=== PATIENT | female | born 1980 | race Two or more races ===

== ENCOUNTER 2025-09-05 16:07 | Outpatient (AMB) | payer BC, SELFPAY ==
--- NOTE | 2025-09-05 16:10 | AM.OFFWIN_ITS ---
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 Allergies acetaminophen (From Vicodin) Allergy (Severe, Verified 09/05/25 16:16) Vomiting hydrocodone (From Vicodin) Allergy (Severe, Verified 09/05/25 16:16) Vomiting hydromorphone (From Dilaudid) Allergy (Severe, Verified 09/05/25 16:16) Vomiting vortioxetine (From Trintellix) Allergy (Mild, Verified 09/05/25 16:16) Stuttering Medication List - Last Reconciled 09/06/25 by Gisell Ko MD bupropion HCl XL 300 mg PO QAM dextroamphetamine-amphetamine 10 mg 1 tab PO DAILY PRN dextroamphetamine-amphetamine 30 mg ER 1 cap PO QAM levocetirizine 5 mg PO QPM omeprazole 40 mg PO DAILY sucralfate 1 g PO QID tirzepatide (weight loss) (Zepbound) mg subcut QWEEK Do you need a note to return to daycare/school/sports/work: No HPI HPI Comments History of Present Illness Details History of Present Illness The patient is a 45 year old female presenting with vaginal odor, lower back pain, and dysuria for one week. - The patient reports a one-week history of vaginal odor without associated discharge. - Associated symptoms include lower back pain and occasional sharp pelvic cramping. - She reports her menstrual period start ed on Tuesday. - She reports a prior history of vaginal infections such as BV yeast infections - She reports symptoms appear similar to prior yeast infections. States that she took a 7 day course of Monistat which helped improve symptoms, however they have returned - The patient reports some discomfort wi th urination but denies burning, frequency, or urgency. - She has a history of hydrosalpinx and ovarian cysts and is unsure if this is c ontributing to her pain. - She has a history of kidney stones a l macey time ago. - Her current symptoms are not similar t o those she experienced with past kidney stones. - She denies any blood in the urine, namita sea, vomiting, fevers, or chills. Review of Systems Constitutional: Negative for fevers, chills Gastroenterology: Negative for nausea or vomiting Genitourinary: Reports dysuria, right sided flank pain, vaginal odor. Negative for urinary frequency, urinary urgency, hematuria, vaginal discharge, vaginal pain, abnormal vaginal bleeding Physical Exam Constituational: +Alert and oriented, Well nourished, No acute distress. Pulmonary: No respiratory distress Abdominal: Soft, Mild right sided CVA TTP. No Left CVA TTP. Minimal suprapubic TTP present. No guarding or rigidity present Musculoskeletal: Moving all extremities spontaneously and against gravity Psychiatric: Cooperative, Appropriate mood & affect, Normal judgment. Physical Exam Vital Signs: Last Vital Signs Temp 97.3 F 09/05/25 16:11 Pulse 78 09/05/25 16:11 BP 113/69 09/05/25 16:11 BMI result Body Mass Index 34.7 Results AMB Urinalysis, Automated UA Leukoctes 0 Anish/uL Last Edit by Walker Yusuf MA on 09/05/25 16:49 UA Nitrite Negative Last Edit by Walker Yusuf MA on 09/05/25 16:49 UA Urobilinogen 0.2 mg/dL Last Edit by Walker Yusuf MA on 09/05/25 16:49 UA Protein 0 mg/dL Last Edit by Walker Yusuf MA on 09/05/25 16:49 UA pH 6.0 Last Edit by Walker Yusuf MA on 09/05/25 16:49 UA Blood 200 Seven/uL Last Edit by Walker Yusuf MA on 09/05/25 16:49 3+ Walker Yusuf 09/05/25 16:49 UA Specific [place] 1.025 Last Edit by Walker Yusuf MA on 09/05/25 16:4 9 UA Ketone Positive Last Edit by Walker Yusuf MA on 09/05/25 16:49 15 mg/dl Walker Yusuf 09/05/25 16:49 UA Bilirubin 0 mg/dL Last Edit by Wakler Yusuf MA on 09/05/25 16:49 UA Glucose 0 mg/dL Last Edit by Walker Yusuf MA on 09/05/25 16:49 Results Reviewed Results Reviewed: Laboratory Last Values Urine pH (Auto) 6.0 09/05/25 16:31 Specific [place] (Auto) 1.025 09/05/25 16:31 Urine Protein (Auto) 0 mg/dL 09/05/25 16:31 Glucose (UA)(Auto) 0 mg/dL 09/05/25 16:31 Urine Ketones (Auto) Positive A* 09/05/25 16:31 Urine Blood (Auto) 200 Seven/uL H* 09/05/25 16:31 Urine Nitrite (Auto) Negative 09/05/25 16:31 Urine Bilirubin (Auto) 0 mg/dL 09/05/25 16:31 Urine Urobilinogen (Auto) 0.2 mg/dL 09/05/25 16:31 Leukocyte Esterase (Auto) 0 Anish/uL 09/05/25 16:31 Assessment & Plan Assessment & Plan (1) Dysuria: Code(s): R30.0 - Dysuria Plan Patient presents with a 7 day history of dysuria, vaginal odor, and lower back pain. She denies any fevers, nausea, or vomiting She has a history of hydrosalpinx and recurrent ovarian cysts which she is u nsure they may be related to her current symptoms She is currently on her menstrual period which may also be contributing to her symptoms Patient reports symptoms do not appear similar with prior history of kidney stones UA in office reveals 3+ blood and 1+ ketones, however negative leukocytes or nitrites. Based on symptoms, will obtain urine cultures to definitely rule out UTI BV, yeast, Trichomonas, gonorrhea, and chlamydia swabs obtained in office In the interim, recommended to stay well hydrated and urinate frequently. Advised to avoid any products such as scented soaps in the vaginal area. Recommended monitoring for increasing flank pain, fevers, nausea, vomiting, or worsening symptoms. Recommended prompt medical evaluation if these symptoms occur. Patient was informed and verbally consented to the use of an ambient scribe for clinic note documentation during the visit. Orders: Orders Urine Culture 09/05/25 Z13.9 - Encounter for screening, unspecified AMB Urinalysis Automated 09/05/25 R30.0 - Dysuria Bacterial Vaginosis Panel 09/05/25 R30.0 - Dysuria CT NG by PCR Vag/Cerv 09/05/25 R30.0 - Dysuria Coding Level of Care Code New Pt Level 3 (74749) Diagnoses Dysuria R30.0
[2025-09-05 16:11] VITALS: BP 113/69; PULSE 78; TEMP 36.3; BMI 34.7
--- OUTSIDE RECORDS SUMMARY | 2025-09-05 23:15 | XMS_ITS | Clinical Summary ---
Author Organization Patient Business [facility] Address [address] [place] [address] Care Team Providers Care Sales Account Coordinator Name Role Phone Alan Reyes MD Primary Care Provider [phone] Surgical History Surgery Date Site/Laterality Comments OTHER SURGICAL HISTORY age 4 PROCEDURE: SKIN GRAFT <100SQCM; COMMENT: left tympanoplasty CHOLECYSTECTOMY 2002 PROCEDURE: HISTORICAL CHOLECYSTECTOMY; COMMENT: Dr. Rivera SECTION 2002 PROCEDURE: HISTORICAL ; COMMENT: 2010; total x 2 OTHER SURGICAL HISTORY 05/31/07 PROCEDURE: [place] UNLISTED PX ABDOMEN MUSCULOSKELETAL SYSTEM; COMMENT: Abdominoplasty GASTRIC BYPASS 01/2006 PROCEDURE: [place] GASTRIC RSTCV W/BYP W/SM INT RCNSTJ LIMIT ABSRPJ; COMMENT: Dr. Santacruz; Justin-en-Y ESOPHAGOGASTRODUODENOSCOPY 03/23/2017 PROCEDURE: [place] ESOPHAGOGASTRODUODENOSCOPY TRANSORAL DIAGNOSTIC; COMMENT: normal post gastric bypass Medical History Medical History Date Comments Benign neoplasm of pituitary gland and craniopharyngeal duct (pouch) (CMS/HCC V24, CMS/HCC V28) DX:Benign neoplasm of pitui tary gland and craniopharyngeal duct (pouch) ([facility]); COMMENT: small prolactinoma '99 Allergic rhinitis, cause unspecified DX:Allergic rhinitis, cause unspecified Acute bronchospasm 09/05/2006 DX:Acute bron chospasm Morbid obesity (CMS/HCC V24, CMS/HCC V28) 01/03/2006 DX:Morbid obesity (HCC); COM MENT: gastric bypass; January 2006 Dr. Santacruz Family History Medical History Relation Name Comments Heart failure Brother asthma, HTN Asthma Daughter Heart attack Maternal Grandfather Hypertension Maternal Grandmother COPD (s moker); ?lung cancer COPD Mother +smoker; HTN, S OTILIO cause of Other: unknown cancer Paternal Grandfather Asthma Son Colon cancer Uncle maternal prostate/bladde r cancer Relation Name Status Comments Brother Alive obese, sleep ap dajuan, CHF at age 21, he's preop Gastric Bypass Daughter Alive healthy Father unknown Alive Maternal Grandfather (Age late 6 0s) AMI; obese Maternal Grandmother HTN, CV As Mother smoker ? COPD, sleep apnea, no colon or breast CA Paternal Grandfather Alive Son Alive healthy Uncle maternal Social History Tobacco Use Types Packs/Day Years Used Date Smoking Tobacco: Never Smokeless Tobacco: Never Alcohol Use Standard Drinks/Week Comments Yes 0 (1 standard drink = 0.6 oz pur e alcohol) Comments Unknown Sex and Gender Information Value Date Recorded Sex Assigned at Not on file Legal Sex Female 7:37 PM EST Gender Identity Not on file Sexual Orientation Not on file Plan of Treatment Health Maintenance Due Date Last Done Comments Breast Cancer Screening 1979 Cervical Cancer Screening: Pap Smear 2000 Depression Screening 09/26/2024 COVID-19 Vaccine ( season) 2025 01/15/2021, 12/25/2020 Influenza Vaccine (#1) 2025 06/15/2011 DTaP,Tdap,and Td Vaccines (4 - Td or Tdap) 12/04/2028 12/04/2018, 10/23/2008, 01/02/1998 RSV Immunization Adult Patients (1 - 1-dose 75+ series) 2054 MMR Vaccines Aged Out 08/10/2004 No longer eligi ble based on patient's age to complete this topic Meningococcal ACWY Vaccine Aged Out 10/23/2008 N o longer eligible based on patient's age to complete this topic Hepatitis B Vaccines Completed 07/16/2009, 12/11/2008, 11/13/2008, Additional history exists HIB Vaccines Aged Out No longer eligi ble based on patient's age to complete this topic HPV Vaccines Aged Out No longer eligi ble based on patient's age to complete this topic Hepatitis A Vaccines Aged Out No long er eligible based on patient's age to complete this topic IPV Vaccines Aged Out No longer eligi ble based on patient's age to complete this topic Meningococcal B Vaccine Aged Out No l onger eligible based on patient's age to complete this topic Pneumococcal Vaccine: Pediatrics (0 to 5 Years) and At-Risk Patients (6 to 49 Years) Aged Out No longer eligible based on patient's age to complete this topic RSV Immunization Patients Under 20 months Aged Out No longer eligible based on patient's age to complete this topic Varicella Vaccines Aged Out No longer eligible based on patient's age to complete this topic Care Teams Sales Account Coordinator Relationship Specialty Start Date End Date Alan Reyes MD PCP - General 08/03/01
--- OUTSIDE RECORDS SUMMARY | 2025-09-05 23:15 | XMS_ITS | Continuity of Care Document ---
Author Organization [facility] [address] [place] [address] Phone [phone] Problems Active Problems Provider Date Prolactinoma Maurice Rebolledo M.D. Onset: 0 10/26/2022 Headache Maurice Rebolledo M.D. Onset: 0 10/26/2022 Osteoporosis Maurice Rebolledo M.D. Onset: 0 10/26/2022 Tinnitus Maurice Rebolledo M.D. Onset: 0 10/26/2022 Social History Type Date Description Comments Sex Female Sex Unknown Lives With Spouse Lives With Daughter Lives With Son ETOH Use Occasionally consumes alcoho l Tobacco Use Start: Unknown Patient has never smoked Medications Active Medications SIG Qnty Indications Order ing Provider Date Isibloom0.15-30mg-mcg Tablets Take 1 Tablet By Mouth Every Day Jaye Coyle M.D. Bupropion Hydrochloride ER (XL)300mg Tablets ER 24HR Take 1 tablet daily Unknown Binaxnow Covid-19 Ag Card Home TestKit Follow Package Directions Unknown [id number] Tablets Take 1 Tablet By Mouth Daily For 1 Day Unknown Valacyclovir EQC940io Tablets prn Jaye Coyle M.D. Adderall XR20mg Caps ER 24HR Take 1 Capsule By Mouth Twice Daily Unknown Folic Vlur3xh Tablets Take 1 Tablet By Mouth Every Day Unknown [id number] Capsules DR 1 by mouth every day Maurice Rebolledo M.D. Vital Signs Date Vital Result Comment 10/26/2022 2:56pm BP Systolic 110 mmHg BP Diastolic 72 mmHg Heart Rate 76 /min Height 64 inches 5'4 Weight 218.00 lb BMI (Body Mass Index) 37.4 kg/m2 Results Test Acquired Date Facility Test Result H/L Range N ote Prolactin 10/20/2022 [facility] Prolactin 17.8 NG/ML (4.8-23.3) TSH 10/20/2022 [facility] TSH 1.47 uIU/mL (0.4-4.2) Free T4 10/20/2022 [facility] Free T4 1.01 ng/dL (0.70-1.80) Medical Devices Description No Information Available Encounters Type Date Location Provider Dx Diagnosis Office Visit 10/26/2022 3:00p Main Office Maurice Rebolledo M.D. D35.2 Benign neoplasm of pituitary gland Assessments Date Code Description Provider 10/26/2022 D35.2 Benign neoplasm of pituitary gland Maurice Rebolledo M.D. Plan of Treatment No Information Available Functional Status Description No Information Available Mental Status Description No Information Available Referrals Description No Information Available
== END 2025-09-06 07:22 | disposition home or self-care (01) ==
PROVIDERS: Visit Provider Family Medicine
DX: R30.0 Dysuria (principal)

== ENCOUNTER 2025-09-05 16:07 | Outpatient (REF) | payer SELFPAY ==
[2025-09-06 04:44] LABS: Bacterial Vaginosis PCR NEGATIVE (Negative); Candida Group PCR NOT DETECTED (Not Detect); Candida glab krusei PCR NOT DETECTED (Not Detect); Trichomonas vaginalis PCR NOT DETECTED (Not Detect)
[2025-09-06 05:19] LABS: CT PCR NOT DETECTED (Not Detect.); NG PCR NOT DETECTED (Not Detect.)
== END 2025-09-05 16:08 | disposition home or self-care (01) ==
LOC: HO.LAB 16:07
PROVIDERS: Visit Provider Family Medicine
DX: R30.0 Dysuria (principal); Z20.2 Contact with and (suspected) exposure to infections with a predominantly sexual mode of transmission
CPT/HCPCS: 81003; 81515; 87086; 87491; 87591

== ENCOUNTER 2025-09-11 12:30 | Outpatient (REF) | payer BC, SELFPAY ==
--- OUTSIDE RECORDS SUMMARY | 2025-09-11 17:20 | XMS_ITS | Encounter Summary ---
Author Organization [facility] Prior to 07/27/[address] [place] [id number] Care Team Providers Care Foreign Language Instructor Name Role Phone Alan Reyes MD Primary Care Provider [phone] Reason for Referral * EXTERNAL (Priority) - JORDON Not Received/Patient Declined Specialty Diagnoses / Procedures Referred By Contact Referred To Contact Otolaryngology / EarNoseThroat Procedures REFERRAL TO EAR, NOSE & THROAT Kisha Jessica MD [address] [place], [place] [phone] [facility] [address] [place] [address] DR. HONG [address] [place] [id number] Referral ID Status Reason Start Date Expiration Date V isits Requested Visits Authorized SEE NOTE JORDON Not Received/Lorrie ent Declined 07/05/2017 10/06/2017 1 1 Encounter Details Date Type Department Care Team Description 07/05/2017 Orders Only Adult Medicine [address] [address] Kisha Jessica MD Social History Tobacco Use Types Packs/Day Years Used Date Smoking Tobacco: Never Smokeless Tobacco: Never Alcohol Use Standard Drinks/Week Comments No 0 (1 standard drink = 0.6 oz pur e alcohol) Sex Assigned at Date Recorded Female 02/26/2021 9:29 AM E DT documented as of this encounter Plan of Treatment Not on file documented as of this encounter Visit Diagnoses Not on filedocumented in this encounter Care Teams Foreign Language Instructor Relationship Specialty Start Date End Date Alan Reyes MD [address] [place] [phone] PCP - General 08/03/01 documented as of this encounter
--- OUTSIDE RECORDS SUMMARY | 2025-09-11 17:20 | XMS_ITS | Encounter Summary ---
Author Organization [facility] Prior to 07/27/2024 Address [address] [place] [address] Care Team Providers Care Hammer Runner Name Role Phone Alan Reyes MD Primary Care Provider [phone] Reason for Referral * Non JENN (Priority) - Authorized/Booked Specialty Diagnoses / Procedures Referred By Km arnold Referred To Contact Gastroenterology Procedures REFERRAL TO GASTROENTEROLOGY Kisha Jessica MD [address] [place] [address] [facility] [address] [place] [id number] Referral ID Status Reason Start Date Expiration Date V isits Requested Visits Authorized [id number] Authorized/ Booked 01/26/2017 01/26/2018 1 1 Encounter Details Date Type Department Care Team Description 01/26/2017 Orders Only Adult Medicine [address] [address] Kisha Jessica MD Gastroesophageal reflux disease without esophagitis (Primary Dx) Social History Tobacco Use Types Packs/Day Years Used Date Smoking Tobacco: Never Smokeless Tobacco: Never Alcohol Use Standard Drinks/Week Comments Yes 0 (1 standard drink = 0.6 oz pur e alcohol) social Sex Assigned at Date Recorded Female 02/26/2021 9:29 AM E DT documented as of this encounter Plan of Treatment Not on file documented as of this encounter Visit Diagnoses Diagnosis Gastroesophageal reflux disease without esophagitis- Primary Esophageal reflux documented in this encounter Care Teams Hammer Runner Relationship Specialty Start Date End Date Alan Reyes MD [address] [place] [id number] PCP - General 08/03/01 documented as of this encounter
--- OUTSIDE RECORDS SUMMARY | 2025-09-11 17:20 | XMS_ITS | Encounter Summary ---
Author Organization [facility] Prior to 07/27/2024 Address [address] [place] [address] Care Team Providers Care Butcher Supervisor Name Role Phone Alan Reyes MD Primary Care Provider [phone] Encounter Details Date Type Department Care Team Description 10/12/2016 Pt. Non Urgent Medical Question Adult Medicine [address] [id number] Alan Reyes MD [address] [place] [address] [phone] Social History Tobacco Use Types Packs/Day Years Used Date Smoking Tobacco: Never Smokeless Tobacco: Never Alcohol Use Standard Drinks/Week Comments Yes 0 (1 standard drink = 0.6 oz pur e alcohol) social Sex Assigned at Date Recorded Female 02/26/2021 9:29 AM E DT documented as of this encounter Progress Notes * Chelsey Alvarado M.A. - 10/12/2016 1:08 PM ESTFrom: Felisa Mcclure To: Alan Reyes MD Sent: 10/12/2016 12:14 PM EST Subject: Vaccine ..I am traveling to [facility] with my family in december..I was advised by the travel clinic to get a Hep A series. I was wondering if you could order that so I would not have to go to the travel clinic. Thank you documented in this encounter Plan of Treatment Not on file documented as of this encounter Visit Diagnoses Not on filedocumented in this encounter Care Teams Butcher Supervisor Relationship Specialty Start Date End Date Alan Reyes MD [address] [place] [phone] PCP - General 08/03/01 documented as of this encounter
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
--- OUTSIDE RECORDS SUMMARY | 2025-09-11 17:20 | XMS_ITS | Encounter Summary ---
Author Organization [facility] Prior to 07/27/2024 Address [address] [place] [address] Care Team Providers Care Padding Machine Operator Name Role Phone Alan Reyes MD Primary Care Provider [phone] Reason for Visit * Reason Onset Date Comments Provider Call Back 02/03/2018 Encounter Details Date Type Department Care Team Description 02/03/2018 Telephone Gastroenterology - [address] [id number] Miguel Pruett PA-C Provider Call Back Social History Tobacco Use Types Packs/Day Years Used Date Smoking Tobacco: Never Smokeless Tobacco: Never Alcohol Use Standard Drinks/Week Comments Yes 0 (1 standard drink = 0.6 oz pur e alcohol) 1 drink per week Sex Assigned at Date Recorded Female 02/26/2021 9:29 AM E DT documented as of this encounter Miscellaneous Notes * Telephone Encounter - Miguel Pruett PA-C - 02/06/2018 4:58 PM EDT lola Alonzo. * Telephone Encounter - Natali Gr - 02/06/2018 1:39 PM EDT Patient appointment is scheduled for 02/18/18 for Nuc Med Hida Scan, she could only take this appointment due to her work schedule, patient scheduled for 02/22/18 @ 10:00am will check with her Facility Administrator if okay. * Telephone Encounter - Ivet Domingo - 02/06/2018 1:32 PM EDT Message left for patient to call back. If she does, ask patient to call radiology to get gastric emptying Study done sooner. Also, needs follow up with Miguel Pruett. * Telephone Encounter - Miguel Pruett PA-C - 02/06/2018 1:26 PM EDT Please ask the patient to contact the radiology department to see if she can have her gastric emptying study completed sooner and then have her follow-up with me here in the office to discuss the results. * Telephone Encounter - Coleen Huang - 02/06/2018 11:32 AM EDT Patient called back, she has her gastric emptying study scheduled for 02/18/18, she will call back to book the follow up. Patient also says that she is not eating, she just takes protein shakes but even that hurts. * Telephone Encounter - Ivet Domingo - 02/06/2018 11:28 AM EDT First message left for patient to call the office. * Telephone Encounter - Miguel Pruett PA-C - 02/06/2018 10:31 AM EDT Patient was seen in the office 3 months ago with chronic digestive complaints of postprandial abdominal bloating, early satiety, nausea and heartburn/reflux symptoms. Upper endoscopy completed last February was normal. Patient is status post gastric bypass surgery in 2005. Symptoms were felt to be mostconsistent with gastroparesis. Patient should have her previously requested gastric emptying study completed and schedule a follow-up visit with me here in the office to discuss the results and her ongoing symptoms. * Telephone Encounter - Ivet Domingo - 02/03/2018 11:11 AM EDT Patient is having a gastric emptying on 02/18/18. Patient has been having protein shakes. Patient still having a lot of pain. Patient not sure if she should still go ahead with the Gastric emptying. Patient is aware miguel not in the office until Tuesday. Requesting a call back then. documented in this encounter Plan of Treatment Not on file documented as of this encounter Visit Diagnoses Not on filedocumented in this encounter Care Teams Padding Machine Operator Relationship Specialty Start Date End Date Alan Reyes MD [address] [place] [id number] PCP - General 08/03/01 documented as of this encounter
--- OUTSIDE RECORDS SUMMARY | 2025-09-11 17:20 | XMS_ITS | Encounter Summary ---
Author Organization [facility] Prior to 07/27/2024 Address [address] [place] [address] Care Team Providers Care Alberene Stone Setter Name Role Phone Alan Reyes MD Primary Care Provider [phone] Encounter Details Date Type Department Care Team Description 08/16/2012 Release of Information Medical Records [address] [place] [address] Abstract, Provider Social History Tobacco Use Types Packs/Day Years [...] on filedocumented in this encounter Care Teams Alberene Stone Setter Relationship Specialty Start Date End Date Alan Reyes MD [address] [place] [id number] PCP - General 08/03/01 documented as of this encounter
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
--- OUTSIDE RECORDS SUMMARY | 2025-09-11 17:20 | XMS_ITS | Encounter Summary ---
Author Organization [facility] Prior to 07/27/2024 Address [address] [place] [address] Care Team Providers Care Clinical Research Associate Name Role Phone Alan Reyes MD Primary Care Provider [phone] Encounter Details Date Type Department Care Team Description 04/17/2019 Bar Porter Report Medical Records [address] [place] [address] Social History Tobacco Use Types Packs/Day Years [...] on filedocumented in this encounter Care Teams Clinical Research Associate Relationship Specialty Start Date End Date Alan Reyes MD [address] [place], [place] [phone] PCP - General 08/03/01 documented as of this encounter
--- OUTSIDE RECORDS SUMMARY | 2025-09-11 17:20 | XMS_ITS | Encounter Summary ---
Author Organization [facility] Prior to 07/27/2024 Address [address] [place] [address] Care Team Providers Care High Density Finishing Operator Name Role Phone Alan Reyes MD Primary Care Provider [phone] Encounter Details Date Type Department Care Team Description 11/14/2017 Block Sorter Report Medical Records [address] [place] [address] Melissa Lynne PA-C Social History Tobacco Use Types Packs/Day Years [...] on filedocumented in this encounter Care Teams High Density Finishing Operator Relationship Specialty Start Date End Date Alan Reyes MD [address] [place] [address] PCP - General 08/03/01 documented as of this encounter
--- OUTSIDE RECORDS SUMMARY | 2025-09-11 17:20 | XMS_ITS | Encounter Summary ---
Author Organization [facility] Prior to 07/27/2024 Address [address] [place] [address] Care Team Providers Care Slot Operations Director Name Role Phone Alan Reyes MD Primary Care Provider [phone] Reason for Visit * Reason Onset Date Comments My Chart Appointment 11/15/2019 Abdominal d istention Encounter Details Date Type Department Care Team Description 11/15/2019 Telephone Adult Medicine [address] [address] Mynor Lyons, ANMOL My Chart Appointment (Abdominal distention) Social History Tobacco Use Types Packs/Day Years Used Date Smoking Tobacco: Never Smokeless Tobacco: Never Alcohol Use Standard Drinks/Week Comments Yes 0 (1 standard drink = 0.6 oz pur e alcohol) Sex Assigned at Date Recorded Female 02/26/2021 9:29 AM E DT documented as of this encounter Miscellaneous Notes * Telephone Encounter - Brisa Ramires R.N - 11/15/2019 4:55 PM EST [phone] (home) [phone] (work) Pt called left voice message to return call. * Telephone Encounter - Radha Robbins - 11/15/2019 1:20 PM EST Patient has scheduled a visit through My Chart. Please call patient to triage for appropriateness. Date appointment is booked: 11/16/19 Appointment scheduled with Mynor Lyons Reason for appointment: Abdominal distention documented in this encounter Plan of Treatment Not on file documented as of this encounter Visit Diagnoses Not on filedocumented in this encounter Care Teams Slot Operations Director Relationship Specialty Start Date End Date Alan Reyes MD [address] [place] [id number] PCP - General 08/03/01 documented as of this encounter
--- OUTSIDE RECORDS SUMMARY | 2025-09-11 17:20 | XMS_ITS | Encounter Summary ---
Author Organization [facility] Prior to 07/27/2024 Address [address] [place] [address] Care Team Providers Care Semiconductor Testing Group Leader Name Role Phone Alan Reyes MD Primary Care Provider [phone] Encounter Details Date Type Department Care Team Description 05/29/2019 Insurance Inspector Report Medical Records [address] [place] [address] Social History Tobacco Use Types Packs/Day Years [...] on filedocumented in this encounter Care Teams Semiconductor Testing Group Leader Relationship Specialty Start Date End Date Alan Reyes MD [address] [place], [place] [phone] PCP - General 08/03/01 documented as of this encounter
--- OUTSIDE RECORDS SUMMARY | 2025-09-11 17:20 | XMS_ITS | Encounter Summary ---
Author Organization [facility] Prior to 07/27/2024 Address [address] [place] [address] Care Team Providers Care Textile Converter Name Role Phone Alan Reyes MD Primary Care Provider [phone] Reason for Visit * Reason Comments E-prescribe Rx Request Encounter Details Date Type Department Care Team Description 01/26/2013 Refill Adult Medicine [address] [phone] Alan Reyes MD [address] [place] [address] [phone] E-prescribe Rx Request Social History Tobacco Use Types Packs/Day Years Used Date Smoking Tobacco: Never Smokeless Tobacco: Never Alcohol Use Standard Drinks/Week Comments Yes 0 (1 standard drink = 0.6 oz pur e alcohol) social Sex Assigned at Date Recorded Female 02/26/2021 9:29 AM E DT documented as of this encounter Miscellaneous Notes * Telephone Encounter - Ashlee Rosario L.P.N. - 01/26/2013 9:23 AM EDT Pt will need an appt * Telephone Encounter - Alivia Pelletier - 01/26/2013 9:20 AM EDT WHEN WAS THE PATIENT'S LAST APPOINTMENT IN ADULT MEDICINE? 07/27/12 WHEN WAS THE LAST TIME THE PATIENT SAW THEIR PCP? 12/04/11 Does patient have an upcoming appointment? No[facility] to refill request. Appt due in January (THE MEDICATION REQUESTED IS ON THE MED LIST ABOVE) All of the medications requested were on the CURRENT MEDS list Did you check the Pharmacy information above?: YES Patient wants: 30 -day supply Patient would like script to be: E-PRESCRIBED/FAXED TO PHARMACY Is this a mail order prescription request ? NO Indicate how soon the patient needs the script: BY THE END OF THE DAY Patients current insurance carrier is: Payor: Vocab [facility] XOR.MOTORS Plan: [employer] $[address] [place] [id number] Product Type: [employer] [id number] documented in this encounter Plan of Treatment Not on file documented as of this encounter Visit Diagnoses Not on filedocumented in this encounter Care Teams Textile Converter Relationship Specialty Start Date End Date Alan Reyes MD [address] [place] [address] PCP - General 08/03/01 documented as of this encounter
--- OUTSIDE RECORDS SUMMARY | 2025-09-11 17:20 | XMS_ITS | Encounter Summary ---
Author Organization [facility] Prior to 07/27/2024 Address [address] [place] [address] Care Team Providers Care Linux Network Engineer Name Role Phone Alan Reyes MD Primary Care Provider [phone] Encounter Details Date Type Department Care Team Description 01/15/2019 Um Rn Report Medical Records [address] [place] [address] Social History Tobacco Use Types Packs/Day Years [...] on filedocumented in this encounter Care Teams Linux Network Engineer Relationship Specialty Start Date End Date Alan Reyes MD [address] [place], [place] [phone] PCP - General 08/03/01 documented as of this encounter
--- OUTSIDE RECORDS SUMMARY | 2025-09-11 17:20 | XMS_ITS | Encounter Summary ---
Author Organization [facility] Prior to 07/27/2024 Address [address] [place] [address] Care Team Providers Care Support Dba Name Role Phone Alan Reyes MD Primary Care Provider [phone] Reason for Visit * Reason Comments E-prescribe Rx Request Encounter Details Date Type Department Care Team Description 04/16/2017 Refill Gastroenterology - [address] [phone] Win Whelan PA-C E-prescribe Rx Request Social History Tobacco Use Types Packs/Day Years Used Date Smoking Tobacco: Never Smokeless Tobacco: Never Alcohol Use Standard Drinks/Week Comments Yes 0 (1 standard drink = 0.6 oz pur e alcohol) social Sex Assigned at Date Recorded Female 02/26/2021 9:29 AM E DT documented as of this encounter Miscellaneous Notes * Telephone Encounter - Ivet Domingo - 04/18/2017 11:25 AM EDT Message left for patient to call the office. * Telephone Encounter - Win Whelan PA-C - 04/18/2017 9:08 AM EDT Will approve but pt needs a f/u appt. documented in this encounter Plan of Treatment Not on file documented as of this encounter Visit Diagnoses Not on filedocumented in this encounter Care Teams Support Dba Relationship Specialty Start Date End Date Alan Reyes MD [address] [place] [id number] PCP - General 08/03/01 documented as of this encounter
--- OUTSIDE RECORDS SUMMARY | 2025-09-11 17:20 | XMS_ITS | Encounter Summary ---
Author Organization [facility] Prior to 07/27/2024 Address [address] [place] [address] Care Team Providers Care Chemical Equipment Repairer Name Role Phone Alan Reyes MD Primary Care Provider [phone] Reason for Visit * Reason Onset Date Comments E-prescribe Rx Request 10/20/2008 Encounter Details Date Type Department Care Team Description 10/19/2008 Refill Adult Medicine [address] [address] Gladis Vaca MD E-prescribe Rx Request Social History Tobacco Use Types Packs/Day Years Used Date Smoking Tobacco: Never Alcohol Use Standard Drinks/Week Comments Yes 0 (1 standard drink = 0.6 oz pur e alcohol) social Sex Assigned at Date Recorded Female 02/26/2021 9:29 AM E DT documented as of this encounter Miscellaneous Notes * Telephone Encounter - Gladis Vaca MD - 10/22/2008 8:13 AM EST Looks like refill request was already send to Dr Estrada which is approproiate * Telephone Encounter - Roque Jama - 10/21/2008 8:47 AM EST SHOULD THIS MED COME FROM FOAM FABRICATOR OR ENDOCRINOLOGY ?? * Telephone Encounter - Nathaniel Whalen MD - 10/21/2008 8:41 AM EST I don't feel comfortable refilling this * Telephone Encounter - Pam Arzate Lpn - 10/21/2008 7:58 AM EST Please review and advise. last filled 09/09/08 Gladis Elmore MD # [id number] * Telephone Encounter - Pam Arzate Lpn - 10/20/2008 4:51 PM EST SHOULD THIS MED COME FROM FOAM FABRICATOR OR ENDOCRINOLOGY ?? documented in this encounter Plan of Treatment Not on file documented as of this encounter Visit Diagnoses Not on filedocumented in this encounter Care Teams Chemical Equipment Repairer Relationship Specialty Start Date End Date Alan Reyes MD [address] [place] [id number] PCP - General 08/03/01 documented as of this encounter
--- OUTSIDE RECORDS SUMMARY | 2025-09-11 17:20 | XMS_ITS | Encounter Summary ---
Author Organization [facility] Prior to 07/27/2024 Address [address] [place] [address] Care Team Providers Care Frontend Engineer Name Role Phone Alan Reyes MD Primary Care Provider [phone] Encounter Details Date Type Department Care Team Description 07/31/2012 Parachute Rigger Report Medical Records [address] [place] [address] Social History Tobacco Use Types Packs/Day Years [...] on filedocumented in this encounter Care Teams Frontend Engineer Relationship Specialty Start Date End Date Alan Reyes MD [address] [place], [place] [phone] PCP - General 08/03/01 documented as of this encounter
--- OUTSIDE RECORDS SUMMARY | 2025-09-11 17:20 | XMS_ITS | Continuity of Care Document ---
Author Organization [facility] [address] [place] [address] Phone [phone] Problems Active Problems Provider Date Prolactinoma Maurice [...] Card Home TestKit Follow Package Directions Unknown [id number] Tablets Take 1 Tablet By Mouth Daily For 1 Day Unknown Valacyclovir [id number] Tablets prn Jaye Coyle M.D. Adderall XR20mg Caps ER 24HR Take 1 Capsule By Mouth Twice Daily Unknown Folic Wabl5ok Tablets Take 1 Tablet By Mouth Every Day Unknown [id number] Capsules DR 1 by mouth every day Maurice Rebolledo M.D. Vital Signs Date Vital Result Comment 10/26/2022 2:56pm BP Systolic 110 mmHg BP Diastolic 72 mmHg Heart Rate 76 /min Height 64 inches 5'4 Weight 218.00 lb BMI (Body Mass Index) 37.4 kg/m2 Results Test Acquired Date Facility Test Result H/L Range N ote Prolactin 10/20/2022 [facility] Refer ce Lab Prolactin 17.8 NG/ML (4.8-23.3) TSH 10/20/2022 [facility] ce Lab TSH 1.47 uIU/mL (0.4-4.2) Free T4 10/20/2022 [facility] ce Lab Free T4 1.01 ng/dL (0.70-1.80) [...]
--- OUTSIDE RECORDS SUMMARY | 2025-09-11 17:20 | XMS_ITS | Encounter Summary ---
Author Organization [facility] Prior to 07/27/2024 Address [address] [place] [address] Care Team Providers Care Hogshead Stripper Name Role Phone Alan Reyes MD Primary Care Provider Reason for Visit * Reason Onset Date Comments Faxed Refill 07/04/2017 Encounter Details Date Type Department Care Team Description 07/04/2017 Refill Adult Medicine [address] [id number] Alan Reyes MD [address] [place] [address] Faxed Refill Social History Tobacco Use Types Packs/Day Years Used Date Smoking Tobacco: Never Smokeless Tobacco: Never Alcohol Use Standard Drinks/Week Comments No 0 (1 standard drink = 0.6 oz pur e alcohol) Sex Assigned at Date Recorded Female 02/26/2021 9:29 AM E DT documented as of this encounter Miscellaneous Notes * Telephone Encounter - Roz Del Cid - 07/04/2017 1:23 PM EDT Patient would like script to be: E-PRESCRIBED/FAXED TO PHARMACY When was the patients last office visit in Adult Medicine?: 04/22/17 When was the last time the patient saw their PCP? 12/04/11 Does patient have an upcoming appointment? Yes 07/26/17 (THE MEDICATION IS NOT ON THE MED LIST AND IS IDENTIFIED BELOW): Med name: amoxicillin Dosage: 500 # of tablets: 21 Local pharmacy with request for 30 -day supply Instructions: 1 cap by mouth 3 times a day for 7 days Did you check the pharmacy information above?: YES Patients current insurance carrier: Payor: [employer] / Plan: [employer] EMP PPO $20/$30 / Product Type: PPO [id number] documented in this encounter Plan of Treatment Not on file documented as of this encounter Visit Diagnoses Not on filedocumented in this encounter Care Teams Hogshead Stripper Relationship Specialty Start Date End Date Alan Reyes MD [address] [place] [id number] PCP - General 08/03/01 documented as of this encounter
--- OUTSIDE RECORDS SUMMARY | 2025-09-11 17:20 | XMS_ITS | Encounter Summary ---
Author Organization [facility] Prior to 07/27/2024 Address [address] [place] [address] Care Team Providers Care Manager Of Digital Name Role Phone Alan Reyes MD Primary Care Provider [phone] Encounter Details Date Type Department Care Team Description 02/13/2019 Fireworks Inspector Report Medical Records [address] [place] [address] Social History Tobacco Use Types Packs/Day Years [...] on filedocumented in this encounter Care Teams Manager Of Digital Relationship Specialty Start Date End Date Alan Reyes MD [address] [place], [place] [phone] PCP - General 08/03/01 documented as of this encounter
--- OUTSIDE RECORDS SUMMARY | 2025-09-11 17:20 | XMS_ITS | Encounter Summary ---
Author Organization [facility] Prior to 07/27/2024 Address [address] [place] [address] Care Team Providers Care Die Finisher Forging Name Role Phone Alan Reyes MD Primary Care Provider [phone] Encounter Details Date Type Department Care Team Description 05/06/2014 Release of Information Medical Records [address] [place] [id number] Abstract, Provider Social History Tobacco Use Types [...] on filedocumented in this encounter Care Teams Die Finisher Forging Relationship Specialty Start Date End Date Alan Reyes MD [address] [place] [address] [phone] PCP - General 08/03/01 documented as of this encounter
--- OUTSIDE RECORDS SUMMARY | 2025-09-11 17:20 | XMS_ITS | Encounter Summary ---
Author Organization [facility] Prior to 07/27/2024 Address [address] [place] [address] Care Team Providers Care Project Program Manager Name Role Phone Alan Reyes MD Primary Care Provider [phone] Reason for Referral * EXTERNAL (Routine) - Authorized/Booked Specialty Diagnoses / Procedures Referred By Km arnold Referred To Contact Endocrinology Procedures REFERRAL TO ENDOCRINOLOGY Karlee Horner PA-C [address] [place] [address] Chidi Cruz MD [facility] [address] [place] [address] Referral ID Status Reason Start Date Expiration Date V isits Requested Visits Authorized [id number] Authorized/ Booked 06/03/2021 09/08/2021 6 6 Encounter Details Date Type Department Care Team Description 06/03/2021 Orders Only Adult Medicine [address] [address] Karlee Horner PA-C Social History Tobacco Use Types Packs/Day Years Used Date Smoking Tobacco: Never Smokeless Tobacco: Never Alcohol Use Standard Drinks/Week Comments Yes 0 (1 standard drink = 0.6 oz pur e alcohol) Sex Assigned at Date Recorded Female 02/26/2021 9:29 AM E DT COVID-19 Exposure Response Date Recorded In the last month, have you been in contact with someone who was confirmed or suspected to have Coronavirus / COVID-19? No / Unsure 06/02/2021 1:29 PM EDT documented as of this encounter Plan of Treatment Not on file documented as of this encounter Visit Diagnoses Not on filedocumented in this encounter Care Teams Project Program Manager Relationship Specialty Start Date End Date Alan Reyes MD [address] [place] [address] PCP - General 08/03/01 documented as of this encounter
--- OUTSIDE RECORDS SUMMARY | 2025-09-11 17:20 | XMS_ITS | Encounter Summary ---
Author Organization [facility] Prior to 07/27/2024 Address [address] [place] [address] Care Team Providers Care Real Estate Intern Name Role Phone Alan Reyes MD Primary Care Provider [phone] Encounter Details Date Type Department Care Team Description 01/30/2019 Release of Information Medical Records [address] [place] [id number] Abstract, Provider Social History Tobacco Use Types [...] on filedocumented in this encounter Care Teams Real Estate Intern Relationship Specialty Start Date End Date Alan Reyes MD [address] [place] [address] [phone] PCP - General 08/03/01 documented as of this encounter
--- OUTSIDE RECORDS SUMMARY | 2025-09-11 17:22 | XMS_ITS | Encounter Summary ---
Author Organization [facility] Prior to 07/27/2024 Address [address] [place] [address] Care Team Providers Care Industrial Relations Representative Name Role Phone Alan Reyes MD Primary Care Provider [phone] Encounter Details Date Type Department Care Team Description 12/22/2017 Pt. Non Urgent Medical Question Adult Medicine [address] [address] Britany العراقي PA-C [address] [place] [phone] S/P gastric bypass (Primary Dx); Low vitamin B12 level Social History Tobacco Use Types Packs/Day Years Used Date Smoking Tobacco: Never Smokeless Tobacco: Never Alcohol Use Standard Drinks/Week Comments Yes 0 (1 standard drink = 0.6 oz pur e alcohol) 1 drink per week Sex Assigned at Date Recorded Female 02/26/2021 9:29 AM E DT documented as of this encounter Progress Notes * Edouard Hagan C.M.A. 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 I am wondering if you would order a b12 test for me just to check my b12 level? Or ifyou want me to make an appt to see you. Thanks so much Felisa documented in this encounter Plan of Treatment Not on file documented as of this encounter Results * (ABNORMAL) VITAMIN B-12, ASSAY (12/08/2018 8:06 AM EDT) VITAMIN B12 > 2000(H) 250 - 900 pg/mL 12/08/2018 12:46 PM EDT [email or web address] 12/08/2018 8:06 AM EDT 12/08/2018 8:11 AM EDT Britany العراقي PA-C [email or web address] documented in this encounter Visit Diagnoses Diagnosis S/P gastric bypass- Primary Bariatric surgery status Low vitamin B12 level Other B-complex deficiencies documented in this encounter Care Teams Industrial Relations Representative Relationship Specialty Start Date End Date Alan Reyes MD [address] [place] [phone] PCP - General 08/03/01 documented as of this encounter
--- OUTSIDE RECORDS SUMMARY | 2025-09-11 17:22 | XMS_ITS | Encounter Summary ---
Author Organization [facility] Prior to 07/27/2024 Address [address] [place] [address] Care Team Providers Care Hop Farm Worker Name Role Phone Alan Reyes MD Primary Care Provider [phone] Encounter Details Date Type Department Care Team Description 07/05/2018 Pt. Non Urgent Medic al Question Gastroenterology - [address] [phone] Glenn Pruett PA-C Social History Tobacco Use Types Packs/Day Years Used Date Smoking Tobacco: Never Smokeless Tobacco: Never Alcohol Use Standard Drinks/Week Comments Yes 0 (1 standard drink = 0.6 oz pur e alcohol) 1 drink per week Sex Assigned at Date Recorded Female 02/26/2021 9:29 AM E DT documented as of this encounter Progress Notes * Mila ToussaintPEdenilson - 07/05/2018 7:42 AM EDTFrom: Felisa Mcclure To: Glenn Pruett PA-C Sent: 07/05/2018 7:38 AM EDT Subject: new pharmacy I apologize I have a new pharmcay. Padminie aid on [facility] in [facility] documented in this encounter Plan of Treatment Not on file documented as of this encounter Visit Diagnoses Not on filedocumented in this encounter Care Teams Hop Farm Worker Relationship Specialty Start Date End Date Alan Reyes MD [address] [place] [phone] PCP - General 08/03/01 documented as of this encounter
[2025-09-12 01:56] LABS: CT PCR Urine NOT DETECTED (Not Detect.); NG PCR Urine NOT DETECTED (Not Detect.)
== END 2025-09-11 12:31 | disposition home or self-care (01) ==
LOC: HO.LNP 12:30
PROVIDERS: Visit Provider Physician Assistant
DX: R30.0 Dysuria (principal); R39.9 Unspecified symptoms and signs involving the genitourinary system; Z20.2 Contact with and (suspected) exposure to infections with a predominantly sexual mode of transmission
CPT/HCPCS: 81003; 87086; 87491; 87591

== ENCOUNTER 2025-09-11 12:30 | Outpatient (AMB) | payer BC, SELFPAY ==
[2025-09-11 12:41] VITALS: BP 109/64; PULSE 80; TEMP 35.7; BMI 34.7
--- NOTE | 2025-09-11 12:41 | AM.OFFWIN_ITS ---
Intake Vital Signs 09/11/25 12:41 Height 5 ft 3 in Weight 196 lb BMI 34.7 BP 109/64 Blood Pressure Location Lt brachial Position Sitting Pulse 80 Pulse Source Palpation Temp 96.2 F L Temp Source Oral Intake Visit Reasons: EP - Residual UTI Intake Note: EP complains of frequency and dysuria for a week. Allergies acetaminophen (From Vicodin) Allergy (Severe, Verified 09/11/25 12:51) Vomiting hydrocodone (From Vicodin) Allergy (Severe, Verified 09/11/25 12:51) Vomiting hydromorphone (From Dilaudid) Allergy (Severe, Verified 09/11/25 12:51) Vomiting vortioxetine (From Trintellix) Allergy (Mild, Verified 09/11/25 12:51) Stuttering Do you need a note to return to daycare/school/sports/work: No HPI HPI Comments History of Present Illness Details History - The patient is a 45 year old female pr esenting with symptoms of a suspected urinary tract infection for over one week. - She reports burning pain, malodorous u rine, and lower abdominal cramping. - She was seen six days ago for similar symptoms, at which time her UA, michaela vag panel and urine culture all showed no infection. - She notes recent sexual activity with a new partner over the weekend, a condom was not used, and believes this may have worsened her current symptoms. - She denies fever. - She is currently on her menstrual lara od, which she states makes it difficult to determine if there is blood in her urine. - She has a history of a kidney stone lo ng in the past, but reports her current symptoms do not feel similar. - She also has a history of low back jessica n, which she considers her normal. - She is asking for STI testing, denies any abnormal discharge. Review of Systems - Genitourinary: Reports dysuria, malodo rene urine, and being on her menstrual period. - She denies symptoms consistent with he r past kidney stone. - Gastrointestinal: Reports abdominal cr amping. - Musculoskeletal: Reports baseline low back pain. - Constitutional: Denies fever. All systems reviewed and are unremarkable except as noted in HPI Physical Exam General: Cooperative, healthy appearing, comfortable, no acute distress and well developed Orientation: Patient oriented x3 Limitations: No limitations Head: Normal to inspection Ears: Hearing grossly normal bilaterally Face and sinus: Normal facial exam Neck: Normal visual inspection and Yes full ROM Respiratory: Normal respiratory effort and able to speak in complete sentences. Skin: No rashes or lesions noted Neuro: Patient oriented x3 [facility] Medical History (Updated 09/11/25 @ 13:10 by Keira Stark PA-C) Possible exposure to sexually transmitted infection Physical Exam Vital Signs: Last Vital Signs Temp 96.2 F L 09/11/25 12:41 Pulse 80 09/11/25 12:41 BP 109/64 09/11/25 12:41 BMI result Body Mass Index 34.7 Results AMB Urinalysis, Automated UA Leukoctes 0 Anish/uL Last Edit by Walker Yusuf MA on 09/11/25 13:15 UA Nitrite Negative Last Edit by Walker Yusuf MA on 09/11/25 13:15 UA Urobilinogen 0.2 mg/dL Last Edit by Walker Yusuf MA on 09/11/25 13:15 UA Protein 0 mg/dL Last Edit by Walker Yusuf MA on 09/11/25 13:15 UA pH 6.0 Last Edit by Walker Yusuf MA on 09/11/25 13:15 UA Blood 0 Seven/uL Last Edit by Walker Yusuf MA on 09/11/25 13:15 UA Specific [place] 1.005 Last Edit by Walker Yusuf MA on 09/11/25 13:1 5 UA Ketone Negative Last Edit by Walker Yusuf MA on 09/11/25 13:15 UA Bilirubin 0 mg/dL Last Edit by Walker Yusuf MA on 09/11/25 13:15 UA Glucose 0 mg/dL Last Edit by Walker Yusuf MA on 09/11/25 13:15 Assessment & Plan Assessment & Plan (1) Possible exposure to sexually transmitted infection: Code(s): Z20.2 - Contact with and (suspected) exposure to infections with a predominantly sexual mode of transmission Plan: - Due to possible exposure from a new sexual partner, a urine sample will be collected for CT/NG testing. - Treatment based on test results. (2) Symptoms of urinary tract infection: Code(s): R39.9 - Unspecified symptoms and signs involving the genitourinary system Plan: Plan - Although the current urinalysis is negative for leukocytes and nitrites, the decision was made to treat the patient for a urinary tract infection based on her symptoms and a prior positive test as she did do a test earlier today that she says was + nitrites and + leuks. 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 - A prescription was sent to her pharmacy. Urine culture will be sent, if negative, she will be told to stop the abx. - If her symptoms continue, she should follow up with her PCP or DIGITAL ARTIST. Patient was informed and verbally consented to the use of an ambient scribe for clinic note documentation during this visit. Orders: Orders Urine Culture Today R30.0 - Dysuria CT NG by PCR Urine Today Z20.2 - Contact with and (suspected) exposure to infections with a predominantly sexual mode of transmission AMB Urinalysis Automated Today Z13.9 - Encounter for screening, unspecified Medications: New cefuroxime axetil 500 mg PO Q12H 10 tabs 0RF Coding Level of Care Code New Pt Level 4 (22805) Diagnoses Possible exposure to sexually transmitted infection Z20.2 Symptoms of urinary tract infection R39.9
--- OUTSIDE RECORDS SUMMARY | 2025-09-11 16:23 | XMS_ITS | Clinical Summary ---
Author Organization Patient Business Ser [facility] Address [address] [place] [address] Care Team Providers Care Freelance Displayer Name Role Phone Alan Reyes MD Primary Care Provider Surgical History Surgery Date Site/Laterality Comments OTHER SURGICAL HISTORY age 4 PROCEDURE: SKIN GRAFT <100SQCM; COMMENT: left tympanoplasty CHOLECYSTECTOMY 2002 PROCEDURE: HISTORICAL CHOLECYSTECTOMY; COMMENT: Dr. Rivera SECTION 2002 PROCEDURE: HISTORICAL ; COMMENT: 2010; total x 2 OTHER SURGICAL HISTORY 05/31/07 PROCEDURE: [place] UNLISTED PX ABDOMEN MUSCULOSKELETAL SYSTEM; COMMENT: Abdominoplasty GASTRIC BYPASS 01/2006 PROCEDURE: [place] GASTRIC RSTCV W/BYP W/SM INT RCNSTJ LIMIT ABSRPJ; COMMENT: Dr. Santacruz; Justin-en-Y ESOPHAGOGASTRODUODENOSCOPY 03/23/2017 PROCEDURE: [place] ESOPHAGOGASTRODUODENOSCOPY TRANSORAL DIAGNOSTIC; COMMENT: normal post gastric bypass Medical History Medical History Date Comments Benign neoplasm of pituitary gland and craniopharyngeal duct (pouch) (CMS/HCC V24, CMS/HCC V28) DX:Benign neoplasm of pitui tary gland and craniopharyngeal duct (pouch) ([facility]); COMMENT: small prolactinoma '99 Allergic rhinitis, cause [...] age to complete this topic Care Teams Freelance Displayer Relationship Specialty Start Date End Date Alan Reyes MD PCP - General 08/03/01
== END 2025-09-11 13:34 | disposition home or self-care (01) ==
LOC: HO.HMCWIS 12:30
PROVIDERS: Visit Provider Physician Assistant
DX: Z20.2 Contact with and (suspected) exposure to infections with a predominantly sexual mode of transmission (principal); R39.9 Unspecified symptoms and signs involving the genitourinary system; Z13.9 Encounter for screening, unspecified